=== PATIENT | male | born 1930 | race Caucasian/White ===

== ENCOUNTER 2017-07-18 11:29 | Inpatient (IN) | payer MEDICARE ==
[~2017-07-18] VITALS: Ht 180.3 cm; Wt 79.4 kg
[2017-07-18 12:02] LABS: BASOPHILS % (AUTO) 0.3 % (0.0-5.0); EOSINOPHILS % (AUTO) 0.3 % (0.0-8.0); HEMATOCRIT 34.9 % (42-54); MEAN CORPUSCULAR HEMOGLOBIN 32.7 pg (27.0-33.0); MEAN CORPUSCULAR HGB CONC 35.3 g/dL (32.0-36.0); MEAN CORPUSCULAR VOLUME 92.6 fL (79-99); MONOCYTES % (AUTO) 9.5 % (3.0-13.0); NEUTROPHILS % (AUTO) 78.9 % (40.0-77.0); PLATELET COUNT (AUTO) 134 K/uL (130-400); RED BLOOD CELL COUNT(AUTO) 3.77 MIL/uL (4.50-6.20); RED CELL DISTRIBUTION WIDTH 14.6 % (11.0-15.5); WHITE BLOOD COUNT (AUTO) 5.5 K/uL (4.8-10.8)
[2017-07-18 12:09] LABS: CREATININE 1.3 mg/dL (0.5-1.5); POTASSIUM 3.4 mmol/L (3.5-5.1); PROTHROMBIN TIME 10.5 SEC (9.6-11.6)
[2017-07-18 12:20] LABS: ALBUMIN 3.2 g/dL (3.5-5.0); BILIRUBIN,TOTAL 1.3 mg/dL (0.2-1.0); CREATINE KINASE MB 2.9 ng/mL (0.5-3.6); TOTAL PROTEIN, SERUM 6.7 g/dL (6.0-8.3)
[2017-07-18] MEDS ORDERED: IBUPROFEN 400 MG TABLET ONE (12:24)
[2017-07-18 12:30] LABS: B-TYPE NATRIURETIC PEPTIDE 104 pg/mL (0-100)
[2017-07-18] MEDS ORDERED: TETANUS/DIPHTHERIA TOXOID [ADULT] 0.5 ML VIAL IM ONE (12:39)
[2017-07-18] MEDS ORDERED: MORPHINE SULFATE 2 MG/ML 1ML SYG ONE (13:24)
[2017-07-18] MEDS ORDERED: ONDANSETRON HCL 4 MG/2 ML VIAL ONE (13:24)
[2017-07-18] MEDS ORDERED: FLUCONAZOLE 100 MG TAB ONE (16:07)
[2017-07-18 19:04] LABS: APPEARANCE,URINE Clear (CLEAR); BILIRUBIN,URINE Small (NEGATIVE); COLOR,URINE Dark Yellow (YELLOW); GLUCOSE, URINE (UA) Negative (NEGATIVE); KETONES,URINE Negative (NEGATIVE); LEUKOCYTE ESTERASE ,URINE Small (NEGATIVE); NITRATE,URINE Negative (NEGATIVE); OCCULT BLOOD,URINE Moderate (NEGATIVE); PROTEIN,URINE POS 1+ (NEGATIVE)
[2017-07-18 19:11] LABS: BACTERIA,URINE Few /HPF (None Seen); FINE GRANULAR CASTS,URINE 0-2 /LPF (None Seen); RBC,URINE None Seen /HPF (0-1)
[2017-07-19] MEDS: SODIUM CHLORIDE 0.9% 1000ML 1,000 ML IV SCH ×2 (03:18→20:35)
[2017-07-19] MEDS ORDERED: ONDANSETRON HCL 4 MG/2 ML VIAL IV PRN (03:30)
[2017-07-19] MEDS ORDERED: HYDRALAZINE HCL 20 MG/ML VIAL IV PRN (03:30)
[2017-07-19] MEDS ORDERED: PANTOPRAZOLE SODIUM 40 MG TABLET.DR PO ONE (04:07)
[2017-07-19] MEDS ORDERED: FAMOTIDINE 20MG TAB 20 MG TAB ONE (08:28)
[2017-07-19] MEDS: FAMOTIDINE 20MG TAB 20 MG TAB PO SCH ×2 (09:00→20:35)
[2017-07-19] MEDS ORDERED: ACETAMINOPHEN 325 MG TAB ONE (10:02)
[2017-07-19 17:00] VITALS: BP 130/68
[2017-07-19 19:00] VITALS: BP 120/66
[2017-07-19 23:00] VITALS: BP 131/70
[2017-07-20] MEDS: ACETAMINOPHEN 325 MG TAB PO PRN ×2 (01:17→05:34)
[2017-07-20] MEDS ORDERED: METO-408 PO (02:53)
[2017-07-20] MEDS ORDERED: ATOR10 PO (02:53)
[2017-07-20] MEDS ORDERED: ROPI0.5T5 PO (02:55)
[2017-07-20] MEDS ORDERED: [UNRECOGNIZED DRUG - CODE] PO (02:59)
[2017-07-20 03:00] VITALS: BP 132/74
[2017-07-20] MEDS ORDERED: OMEP20TA25 PO (03:00)
[2017-07-20] MEDS ORDERED: FURO20TA4 PO (03:00)
[2017-07-20 04:11] LABS: BASOPHILS % (AUTO) 0.5 % (0.0-5.0); EOSINOPHILS % (AUTO) 2.2 % (0.0-8.0); LYMPHOCYTES % (AUTO) 20.7 % (21.0-51.0); MEAN CORPUSCULAR HEMOGLOBIN 32.3 pg (27.0-33.0); MEAN CORPUSCULAR HGB CONC 34.9 g/dL (32.0-36.0); MEAN CORPUSCULAR VOLUME 92.6 fL (79-99); MONOCYTES % (AUTO) 13.7 % (3.0-13.0); NEUTROPHILS % (AUTO) 62.9 % (40.0-77.0); NUCLEATED RED BLOOD CELLS 0.1 % (0.0-0.19); PLATELET COUNT (AUTO) 160 K/uL (130-400); RED BLOOD CELL COUNT(AUTO) 3.46 MIL/uL (4.50-6.20); RED CELL DISTRIBUTION WIDTH 14.4 % (11.0-15.5); WHITE BLOOD COUNT (AUTO) 6.5 K/uL (4.8-10.8)
[2017-07-20 04:21] LABS: CREATININE 1.2 mg/dL (0.5-1.5); POTASSIUM 3.4 mmol/L (3.5-5.1)
[2017-07-20] MEDS ORDERED: SODIUM CHLORIDE 0.9% 1000ML 1,000 ML IV ONE (05:05)
[2017-07-20] MEDS: SODIUM CHLORIDE 0.9% 1000ML 1,000 ML IV SCH ×2 (05:06→14:37)
[2017-07-20 07:00] VITALS: BP 130/76
[2017-07-20] MEDS: PANTOPRAZOLE SODIUM 40 MG TABLET.DR PO SCH (09:17)
[2017-07-20] MEDS: FAMOTIDINE 20MG TAB 20 MG TAB PO SCH ×2 (09:17→21:32)
[2017-07-20 11:00] VITALS: BP 119/79
[2017-07-20] MEDS: ENTACAPONE PO SCH ×3 (14:37→21:33)
[2017-07-20] MEDS: LEVODOPA PO SCH ×3 (14:37→21:33)
[2017-07-20] MEDS: CARBIDOPA PO SCH ×3 (14:37→21:33)
[2017-07-20] MEDS: ROPINIROLE HCL 1 MG TABLET PO SCH ×2 (14:38→21:32)
[2017-07-20 16:00] VITALS: BP 124/71
[2017-07-20 19:00] VITALS: BP 149/74
[2017-07-20] MEDS ORDERED: ATORVASTATIN CALCIUM 20 MG TABLET PO SCH (21:00)
[2017-07-20] MEDS: METOPROLOL TARTRATE 25 MG TAB PO SCH (21:32)
[2017-07-20 23:00] VITALS: BP 140/73
[2017-07-21 03:00] VITALS: BP 144/71
[2017-07-21] MEDS: SODIUM CHLORIDE 0.9% 1000ML 1,000 ML IV SCH ×2 (05:18→13:29)
[2017-07-21 07:00] VITALS: BP 149/76
[2017-07-21] MEDS ORDERED: PANTOPRAZOLE SODIUM 40 MG TABLET.DR PO SCH (09:00)
[2017-07-21] MEDS ORDERED: FUROSEMIDE 20 MG TABLET PO SCH (09:00)
[2017-07-21] MEDS: FAMOTIDINE 20MG TAB 20 MG TAB PO SCH (09:18)
[2017-07-21] MEDS: PANTOPRAZOLE SODIUM 40 MG TABLET.DR PO SCH (09:18)
[2017-07-21] MEDS: ROPINIROLE HCL 1 MG TABLET PO SCH ×2 (09:19→13:29)
[2017-07-21] MEDS: LEVODOPA PO SCH ×3 (09:19→17:23)
[2017-07-21] MEDS: METOPROLOL TARTRATE 25 MG TAB PO SCH (09:19)
[2017-07-21] MEDS: CARBIDOPA PO SCH ×3 (09:19→17:23)
[2017-07-21] MEDS: ENTACAPONE PO SCH ×3 (09:19→17:23)
[2017-07-21 11:00] VITALS: BP 133/79
[2017-07-21] MEDS ORDERED: ENTACAPONE PO SCH (13:00)
[2017-07-21] MEDS ORDERED: LEVODOPA PO SCH (13:00)
[2017-07-21] MEDS ORDERED: CARBIDOPA PO SCH (13:00)
[2017-07-21 16:00] VITALS: BP 116/60
== END 2017-07-21 17:50 | DRG 690 ==
LOC: EDH 11:29 → EDHIP 16:20 → 3DH 07-19 15:49
PROVIDERS: ADMIT Family Medicine; ATTEND Family Medicine
PROC: 3E0234Z Introduction of Serum, Toxoid and Vaccine into Muscle, Percutaneous Approach (ICD-10-PCS; principal; 2017-07-19)
DX: N39.0 Urinary tract infection, site not specified (principal); G20 Parkinson's disease; E86.0 Dehydration; R53.1 Weakness; R29.6 Repeated falls; R62.7 Adult failure to thrive; I10 Essential (primary) hypertension; E78.5 Hyperlipidemia, unspecified; K21.9 Gastro-esophageal reflux disease without esophagitis; Z87.891 Personal history of nicotine dependence; Z23 Encounter for immunization
CPT/HCPCS: 36415; 70450; 71045; 72125; 72170; 73562; 80048; 80053; 81001; 82550; 82553; 83880; 84484; 85025; 85610; 85730; 90714; 93005; J2405; J7030